=== PATIENT | male | born 1940 | race Caucasian/White ===

== ENCOUNTER 2016-06-30 12:11 | Emergency (ER) | payer MEDICARE, MEDICAID ==
[2016-06-30 12:28] VITALS: BMI 26.7
[2016-06-30 12:47] LABS: AUTOMATED BASOPHIL 0.4 % (0-2); AUTOMATED EOSINOPHIL 4.7 % (0-5); AUTOMATED LYMPH 29.1 % (17-44); AUTOMATED MONOCYTE 14.1 % (3-10); AUTOMATED NEUTROPHIL 51.7 % (45-76); MPV 7.8 fL (7.4-10.4)
[2016-06-30 12:52] LABS: BLOOD UREA NITROGEN 26 MG/DL (9-20); CALC CORRECTED 8.9 MG/DL (8.4-10.2); CALCIUM 8.7 MG/DL (8.4-10.2); CALCULATED OSMOLALITY 274 MOs/Kg (270-290); CHLORIDE 105 mEq/L (98-107); GLUCOSE 98 MG/DL (70-99); SODIUM LEVEL 140 mEq/L (137-146); TOTAL PROTEIN 6.1 G/DL (6.3-8.2)
[2016-06-30 12:54] LABS: PARTIAL THROMB. TIME 21.5 SEC (22-35)
[2016-06-30 13:38] VITALS: TEMP 97.4
--- NOTE | 2016-06-30 13:45 | DIRPT ---
CLINICAL DATA: Chest pain. EXAM: CHEST 2 VIEW COMPARISON: 02/27/2010. FINDINGS: Normal sized heart. Clear lungs. Tortuous aorta. Minimal scoliosis and minimal thoracic spine degenerative changes. IMPRESSION: No acute abnormality. Electronically Signed By: Micheal Huang M.D. On: 06/30/2016 13:42
--- NOTE | 2016-06-30 15:00 | EDPRACDOC ---
- General Information Chief Complaint: Chest Pain Stated Complaint: CP PALE ALMOST PASSED OUT Time Seen by Provider: 06/30/16 13:52 Information Source: Patient, Family Mode of Arrival: Car Home Medications: Home Medications Atorvastatin Calcium [Lipitor] 80 mg PO HS 01/12/13 Levothyroxine Sodium [Levothroid] 137 mcg PO DAILY 01/12/13 Losartan Potassium [Cozaar] 100 mg PO DAILY 01/12/13 Nitroglycerin [Nitrostat] 0.4 mg SL [id number] PRN 01/12/13 Omeprazole [Prilosec] 40 mg PO DAILY 01/12/13 Acetaminophen Ex Str Tablet [TYLENOL EXTRA STRENGTH Tablet] 1,000 mg PO TID PRN 11/18/15 Baclofen 10 mg PO BID 11/18/15 Calcium Carbonate + Vitamin D [Oscal with Vitamin D] 500 mg PO BIDLS #60 tablet 12/24/15 Docusate-Senna Concentrate [Senokot S or Ruby Colace] 2 tab PO HS #60 tablet Aspirin (OrangeEnteric Coated) [Ecotrin] 325 mg PO DAILY 06/30/16 Celecoxib (anti-inflammatory) [Celebrex] 200 mg PO BID 06/30/16 Dorzolamide HCl/Timolol Maleat [Cosopt Eye Drops] 1 drop OD BID 06/30/16 Fluticasone/Salmeterol [Advair 250-50] 1 inh INH BID 06/30/16 Ipratropium [Atrovent Hfa] 1 puff INH QID 06/30/16 Latanoprost 1 drop OU QHS 06/30/16 Tramadol HCl [Ultram] 100 mg PO BID 06/30/16 Triamcinolone [Aristocort, Kenalog] 1 gm TOP DIR PRN 06/30/16 Allergies/Adverse Reactions: Allergies Allergy/AdvReac Type Severity Reaction Status Date / Time No Known Allergies Allergy Verified 06/30/16 12:28 - History of Present Illness Onset: 1 WK HPI: PT PRESENTS WITH A WEEK OF OFF AND ON CHEST PAIN. NO EXACERBATING OR ALLEVIATING FACTORS. Chest Pain Location: Reports: Right Chest, Left Chest Pain Radiation: Reports: None Symptoms Occur: Reports: At Rest Cardiac Risk Factors: Reports: Hyperlipidemia, Hypertension Cardiac History of: Reports: AR, Cardiac Cath Pain Description: Reports: Aching Pain Severity: Mild Pain Worsens With: Reports: Nothing Pain Improves With: Reports: Nothing Associated Signs and Symptoms: Denies: Diaphoretic, Abdominal Pain, Nausea, Vomiting ED Past Medical History - History Reviewed Yes Nurses notes reviewed and agree except as marked - Patient Medical History Cardiac History: Reports: Coronary Artery Disease, Hypertension, Heart Attack ( UNKNOWN DATE), Cardiac Catheterization Respiratory History: Reports: COPD GI/ History: Reports: Renal Disease (CREATINE ELEVATED 1.6), Diverticulosis ( MILD SIGMOID COLON PER COLONOSCOPY) Musculoskeletal History: Reports: Arthritis (left shoulder), Osteoarthritis Psychological History: Denies: Depression, Substance Use Disorder Systemic History: Reports: Hypothyroidism. Denies: Cancer Surgical History: Reports: Cardiac Catheterization - Family Medical History Reports: Cancer (SISTER BREAST CA), Cardiac Disorders (MOTHER). Denies: Diabetes, Stroke. Comment Only: Hypertension (UNKNOWN) - Social Medical History Smoking Status: Former smoker Social History: Denies: Substance Use Disorder Lives In: Home EDM Review of Systems - Review of Systems ROS Negative Except as Marked: Yes All systems reviewed and were negative except as marked Constitutional: negative: Fever Respiratory: Cough Cardiovascular: Chest Pain Neurological: Dizziness - Physical Exam Constitutional: Alert Oriented to: Time, Person, Place Last recorded Vital Signs: Last Vital Signs Temp 97.4 F L 06/30/16 13:36 Pulse 68 06/30/16 13:54 Resp 18 06/30/16 13:36 BP 99/63 06/30/16 13:36 Pulse Ox 96 06/30/16 13:36 Oxygen Pulse Oxygen Saturation 96 O2 Device Oxygen Flow Rate Fraction of Inspired Oxygen ( FIO2) - HEENT Head: negative: Deformity, Laceration Eye Exam: negative: Conjunctival Injection, Pale Conjunctiva Nose: negative: Congestion, Discharge Neck: negative: Limited ROM - Respiratory/Cardiovascular Respiratory: Normal - CTA. negative: Tachypnea Cardiovascular: negative: Bradycardia, Tachycardia, Irregular - GI Auscultation: Normal Palpation: Normal Tenderness: Non tender - Musculoskeletal Extremities: Radial Pulse (PALPABLE) - Integumentary Skin: Warm, Dry. negative: Rash - Neurologic Memory Impaired: Normal Motor Function: Normal Mood Description: Anxious Thought: Coherent Perception: Normal ED Chest Pain Exam - Respiratory/Cardiovascular Chest Palpation: negative: Tender, Reproduces Pain - Action Patient received Aspirin within last 24 hours?: Yes ASA given in the ED: No - Results 06/30/16 12:19 06/30/16 12:19 WBC 5.6 xk/uL (3.8-10.8) 06/30/16 12:19 RBC 4.26 xM/uL (4.70-6.10) L 06/30/16 12:19 Hgb 10.9 g/dL (14.0-18.0) L 06/30/16 12:19 Hct 34.1 % (42-52) L 06/30/16 12:19 MCV 80 fL (80-94) 06/30/16 12:19 MCH 25.5 pg (27-32) L 06/30/16 12:19 MCHC 31.9 g/dl (33-36) L 06/30/16 12:19 RDW 15.1 % (11.5-14.5) H 06/30/16 12:19 Plt Count 244 xk/uL (130-400) 06/30/16 12:19 MPV 7.8 fL (7.4-10.4) 06/30/16 12:19 Neut % (Auto) 51.7 % (45-76) 06/30/16 12:19 Lymph % (Auto) 29.1 % (17-44) 06/30/16 12:19 Hooker % (Auto) 14.1 % (3-10) H 06/30/16 12:19 Eos % (Auto) 4.7 % (0-5) 06/30/16 12:19 Baso % (Auto) 0.4 % (0-2) 06/30/16 12:19 Absolute Neuts (auto) 2.86 xk/uL (1.7-8.2) 06/30/16 12:19 Absolute Lymphs (auto) 1.62 xk/uL (0.65-4.75) 06/30/16 12:19 PT 10.6 SEC (9.2-11.2) 06/30/16 12:19 INR 1.0 06/30/16 12:19 APTT 21.5 SEC (22-35) L 06/30/16 12:19 Sodium 140 mEq/L (137-146) 06/30/16 12:19 Potassium 4.5 mEq/L (3.5-5.1) 06/30/16 12:19 Chloride 105 mEq/L (98-107) 06/30/16 12:19 Carbon Dioxide 23 mMOL/L (22-33) 06/30/16 12:19 Anion Gap 17 mEq/L (8-16) H 06/30/16 12:19 BUN 26 MG/DL (9-20) H 06/30/16 12:19 Creatinine 1.50 MG/DL (0.66-1.25) H 06/30/16 12:19 Estimated GFR (MDRD) 46 mL/min (>=60) L 06/30/16 12:19 Glucose 98 MG/DL (70-99) 06/30/16 12:19 Calculated Osmolality 274 MOs/Kg (270-290) 06/30/16 12:19 Calcium 8.7 MG/DL (8.4-10.2) 06/30/16 12:19 Corrected Calcium 8.9 MG/DL (8.4-10.2) 06/30/16 12:19 Total Bilirubin 0.5 MG/DL (0.2-1.3) 06/30/16 12:19 AST 31 IU/L (17-59) 06/30/16 12:19 ALT 36 IU/L (21-72) 06/30/16 12:19 Alkaline Phosphatase 67 IU/L (50-160) 06/30/16 12:19 Troponin I < 0.01 ng/mL (<.04) 06/30/16 12:19 Gid-G-Aledtgxfrxu Pept 171 pg/mL (0-900) 06/30/16 12:19 Total Protein 6.1 G/DL (6.3-8.2) L 06/30/16 12:19 Albumin 3.8 G/DL (3.5-5.0) 06/30/16 12:19 Lab Results 06/30/16 06/30/16 06/30/16 12:19 12:19 12:19 WBC 5.6 RBC 4.26 L Hgb 10.9 L Hct 34.1 L MCV 80 MCH 25.5 L MCHC 31.9 L RDW 15.1 H Plt Count 244 MPV 7.8 Neut % (Auto) 51.7 Lymph % (Auto) 29.1 Hooker % (Auto) 14.1 H Eos % (Auto) 4.7 Baso % (Auto) 0.4 Absolute Neuts (auto) 2.86 Absolute Lymphs (auto) 1.62 PT 10.6 INR 1.0 APTT 21.5 L Sodium 140 Potassium 4.5 Chloride 105 Carbon Dioxide 23 Anion Gap 17 H BUN 26 H Creatinine 1.50 H Estimated GFR (MDRD) 46 L Glucose 98 Calculated Osmolality 274 Calcium 8.7 Corrected Calcium 8.9 Total Bilirubin 0.5 AST 31 ALT 36 Alkaline Phosphatase 67 Troponin I < 0.01 Wbt-M-Fjuzlqrkhcd Pept 171 Total Protein 6.1 L Albumin 3.8 Laboratory Results - last 24 hr 06/30/16 06/30/16 06/30/16 12:19 12:19 12:19 WBC 5.6 RBC 4.26 L Hgb 10.9 L Hct 34.1 L MCV 80 MCH 25.5 L MCHC 31.9 L RDW 15.1 H Plt Count 244 MPV 7.8 Neut % (Auto) 51.7 Lymph % (Auto) 29.1 Hooker % (Auto) 14.1 H Eos % (Auto) 4.7 Baso % (Auto) 0.4 Absolute Neuts (auto) 2.86 Absolute Lymphs (auto) 1.62 PT 10.6 INR 1.0 APTT 21.5 L Sodium 140 Potassium 4.5 Chloride 105 Carbon Dioxide 23 Anion Gap 17 H BUN 26 H Creatinine 1.50 H Estimated GFR (MDRD) 46 L Glucose 98 Calculated Osmolality 274 Calcium 8.7 Corrected Calcium 8.9 Total Bilirubin 0.5 AST 31 ALT 36 Alkaline Phosphatase 67 Troponin I < 0.01 Oze-Q-Axgebitbtww Pept 171 Total Protein 6.1 L Albumin 3.8 Laboratory Results 06/30/16 12:19 06/30/16 12:19 - EKG EKG #1 EKG Time: 12:15 -: Yes EKG interpreted by me Rate: bpm: 80 Robinson: LAD Rhythm: NSR Block: 1 ST: Nonsp Decision Time to Discharge: 15:01 - Departure Yes I personally saw and evaluated the patient. Disposition: Home Condition: Stable Final Diagnosis: Chest pain Qualifiers: Chest pain type: unspecified Qualified Code(s): R07.9 - Chest pain, unspecified Instructions: Chest Pain (ED), Chest Wall Pain Education/Counseling Given To: Patient, Family Member Education/Counseling Given Regarding: Diagnosis, Treatment, Prognosis, Follow Up Referrals: Petrona Cesar MD [Primary Care Provider] - Call for Appointment
[2016-06-30 15:31] VITALS: BP 120/80; PULSE 63
== END 2016-06-30 15:30 | disposition home or self-care (01) ==
LOC: ED 12:11
DX: R07.9 Chest pain, unspecified (principal)
CPT/HCPCS: 36415; 71020; 80053; 83880; 84484; 85025; 85610; 85730; 93005; 99283